=== PATIENT | female | born 1935 | race Caucasian/White ===

== ENCOUNTER 2017-04-16 14:49 | Inpatient (IN) ==
[2017-04-16] MEDS ORDERED: Amiodarone Premix 150 MG/100 ML BAG IVPB ONE (14:55)
[2017-04-16] MEDS ORDERED: 0.9 % Sodium Chloride 1,000 ML IVC ONE (14:55)
[2017-04-16] MEDS ORDERED: Amiodarone Premix 360 MG/200 ML BAG IVC ONE (14:55)
[2017-04-16 15:08] LABS: ABG Base Excess -19.9 mEq/L (-2.0 to 3.0); ABG HCO3 10.6 mEQ/L (21-27); ABG Oxygen Saturation 100 % (95-98); ABG PCO2 43 mmHg (35-45); ABG PO2 519 mmHg (85-104); ABG TCO2 11.9 mEq/L (20-26)
[2017-04-16 15:09] LABS: Basophils # 0.1 K/mcL (0.0-0.2); Basophils % 0.6 %; Eosinophils # 0.2 K/mcL (0.0-0.6); Eosinophils % 1.5 %; Hemoglobin 10.9 g/dL (11.5-15.4); Immature Granulocytes % 4.7 % (0-4); Lymphocytes # 5.8 K/mcL (0.6-4.6); Lymphocytes % 49.8 %; Mean Corpuscular HGB Conc 30.3 g/dL (31.6-35.5); Mean Corpuscular Hemoglobin 29.7 pg (28.0-33.3); Mean Corpuscular Volume 98.1 fL (83.0-100.0); Mean Platelet Volume 10.9 fL (9.4-12.4); Monocytes # 0.7 K/mcL (0.0-1.3); Monocytes % 5.7 %; Neutrophils # 4.4 K/mcL (1.6-8.9); Nucleated Red Blood Cells 0.3 /100 WBC (0); Platelet Count 235 K/mcL (140-400); Red Blood Count 3.67 M/mcL (3.82-4.97); Segmented Neutrophils % 37.7 %
[2017-04-16 15:10] LABS: Blood Gas FiO2 100 %
--- NOTE | 2017-04-16 15:11 | Emergency Department Note ---
Disposition Clinical Impression: Cardiac arrest, Lactic acidosis Atrial fibrillation Qualifiers: Atrial fibrillation type: unspecified Qualified Code(s): I48.91 - Unspecified atrial fibrillation Disposition: Admitted As Inpatient Condition: Critical Time of Disposition: 15:42 CPR HPI - General Chief Complaint: ED Cardiac Arrest/CPR Stated Complaint: cardiac arrest Time Seen by Provider: 04/16/17 14:55 Source: family, EMS Mode of arrival: EMS Limitations: physical limitation Nursing Notes Reviewed: Yes Vital Signs Reviewed: Yes - History of Present Illness HPI Narrative: Patient presents from home after a witnessed arrest. Patient had experienced a choking sensation and then vomited. She became unresponsive. EMS arrived to find the patient apneic and pulseless. She was given rounds of epinephrine and atropine prehospital as well as intubated. She remained apneic and pulseless en route. Witnessed Arrest: Yes Pt Complaint: stopped breathing, collapsed during rest Onset (ago): minute(s) Timing confirmed by: family member Place: home Initial Findings in the Field: no respirations, no pulse ROSC in the Field: No Associated Injuries: No Known history of: CAD Treatments Prior to Arrival: intubation, chest compressions, epinephrine mgs #, atropine mgs # - Related Data Home Medications Medication Instructions Recorded Confirmed Carvedilol [Coreg] 25 mg PO BID 05/06/16 10/28/16 Digoxin [Lanoxin] 0.125 mg PO DAILY 05/06/16 10/28/16 Megestrol Acetate [Megace] 20 ml PO DAILY 05/06/16 10/28/16 Omeprazole [PriLOSEC] 40 mg PO DAILY 05/06/16 10/28/16 Ondansetron HCl [Zofran] 4 mg PO TID PRN 05/06/16 10/28/16 Simvastatin [Zocor] 20 mg PO DAILY 05/06/16 10/28/16 Calcium Carbonate/Vitamin D3 1 tab PO DAILY 10/28/16 10/28/16 [Calcium 500 + Vit D Caplet] Cholecalciferol (D-3) [Vitamin D] 2,000 unit PO DAILY 10/28/16 10/28/16 Sertraline [Zoloft] 100 mg PO BID 10/28/16 10/28/16 clonazePAM [Klonopin] 0.5 mg PO BID PRN 10/28/16 10/28/16 Previous Rx's Medication Instructions Recorded Docusate [Colace] 100 mg PO BID PRN #0 capsule 07/08/16 OxyCODONE/APAP 5/325 [Percocet 0.5 each PO BID PRN #10 tablet 07/08/16 5/325 MG] Azithromycin [Zithromax] 500 mg PO DAILY #3 tablet 11/01/16 Cefdinir [Omnicef] 300 mg PO BID #6 capsule 11/01/16 Allergies Allergy/AdvReac Type Severity Reaction Status Date / Time Hydromorphone [From Dilaudid] Allergy See Verified 10/28/16 12:24 Comments meperidine [From Demerol] Allergy See Verified 10/28/16 12:24 Comments morphine Allergy See Verified 10/28/16 12:24 Comments promethazine Allergy See Verified 10/28/16 12:24 Comments Limitations: ROS unobtainable due to patients medical condition CPR PMH - Past Medical History Medical history: Reports: arthritis, atrial fibrillation, cardiomyopathy, CHF, COPD, coronary artery disease, GERD, GI bleed, hyperlipidemia, hypertension, myocardial infarction, osteoporosis, peripheral artery disease Female Surgical history: Reports: pacemaker/AICD, other (partial gastrectomy) Psychiatric history: Reports: anxiety, depression - Social History Smoking Status: Current every day smoker Alcohol use: Reports: none Drug use: Reports: none Course Course Narrative: Patient presents in cardiac arrest. She was intubated prehospital. Good CO2 color change and breath sounds with bagging. The patient was given 1 round of epinephrine and sodium bicarbonate with return of a narrow complex organized rhythm with a palpable pulse. Approximately 10 minutes later the patient again lost her pulse. She was given another round of epinephrine with return of a narrow complex organized rhythm with a pulse. - Reevaluation(s) Reevaluation #1: Case discussed with Dr. Moralez, cardiology who recommends against an amiodarone drip. accepts ICU admission - Consultations Consultation #1: Case discussed with Dr. Eden, answering service agent 20 minutes after patient's arrival. He states the patient is not a candidate for PCI Consultation #2: I discussed this case with the intensive care unit physician Dr. Thakkar who recommends speaking with the admitting hospitalist Vital Signs Temperature 0 F L 04/16/17 14:51 Pulse Rate 0 04/16/17 14:51 Respiratory Rate 0 04/16/17 14:51 Blood Pressure 0/0 04/16/17 14:51 O2 Sat by Pulse Oximetry 0 04/16/17 14:51 Temperature 0 F L 04/16/17 14:51 Pulse Rate 0 04/16/17 14:51 Respiratory Rate 0 04/16/17 14:51 Blood Pressure 0/0 04/16/17 14:51 O2 Sat by Pulse Oximetry 0 04/16/17 14:51 Oxygen Delivery Oxygen Delivery Ambu Bag Procedures - Central Line Placement Right Femoral Central Line Inserted*: Yes Central Line Insertion: emergent Procedural Pause: verify patient name and date of , pradip and assess the site, assemble equipment and verify supplies, perform hand hygiene Patient Placed on Monitor/Pulse Ox: Yes During the Procedure: clinician is wearing sterile gloves, cap, mask,& gown during insertion, sterile field and sterile technique are maintained, patient's face is covered with drape or mask and wearing a cap Central Line Prep: Chlorhexidine scrub Local Anesthetic: lidocaine 1% Ultrasound Used for Placement: Yes Central Line Lumen Inserted: triple Post Procedure: sutured in place, good blood return, all ports aspirated, flushed, capped, sterile dressing applied, guide wire removed and visualized Patient Tolerated Procedure: no complications Cardiac Arrest/CPR - Medical Records Medical records reviewed: Yes I reviewed the patient's medical records. Medication list - Lab Data Lab results reviewed: Yes I reviewed the patient's lab results. Result diagrams: 04/16/17 15:02 04/16/17 15:02 Lab Results 04/16/17 04/16/17 04/16/17 Range/Units 15:02 15:02 15:02 WBC 11.7 H (4.3-11.1) K/mcL RBC 3.67 L (3.82-4.97) M/mcL Hgb 10.9 L (11.5-15.4) g/dL Hct 36.0 (35.3-44.9) % MCV 98.1 (83.0-100.0) fL MCH 29.7 (28.0-33.3) pg MCHC 30.3 L (31.6-35.5) g/dL RDW 14.0 (11.5-14.5) % Plt Count 235 (140-400) K/mcL MPV 10.9 (9.4-12.4) fL Immature Gran % 4.7 H (0-4) % Seg Neutrophils % 37.7 % Lymphocytes % 49.8 % Monocytes % 5.7 % Eosinophils % 1.5 % Basophils % 0.6 % Neutrophils # 4.4 (1.6-8.9) K/mcL Lymphocytes # 5.8 H (0.6-4.6) K/mcL Monocytes # 0.7 (0.0-1.3) K/mcL Eosinophils # 0.2 (0.0-0.6) K/mcL Basophils # 0.1 (0.0-0.2) K/mcL Nucleated RBCs/100 WBC 0.3 H (0) /100 WBC PT 15.2 H (9.4-12.1) Seconds INR 1.4 APTT 57.5 H (26.0-36.0) Seconds ABG pH (7.32-7.45) pH Units ABG pCO2 (35-45) mmHg ABG pO2 (85-104) mmHg ABG HCO3 (21-27) mEQ/L ABG Total CO2 (20-26) mEq/L ABG O2 Saturation (95-98) % ABG Base Excess (-2.0 to 3.0) mEq/L Blood Gas Modality Inspired O2 % Sodium (136-145) mEq/L Potassium (3.5-4.5) mEq/L Chloride (98-109) mEq/L Carbon Dioxide (19-29) mEq/L BUN (7-20) mg/dL Creatinine (0.57-1.11) mg/dL Est GFR ( Amer) (> 60) Est GFR (Non-Af Amer) (> 60) BUN/Creatinine Ratio (6-26) Glucose (70-99) mg/dL Calculated Osmolality (280-300) Lactic Acid (0.5-2.2) mmol/L Calcium (8.6-10.8) mg/dL Magnesium (1.6-2.6) mg/dL Troponin I (0-0.03) ng/mL Digoxin 1.8 (0.8-2.0) ng/mL 04/16/17 04/16/17 04/16/17 Range/Units 15:02 15:02 15:02 WBC (4.3-11.1) K/mcL RBC (3.82-4.97) M/mcL Hgb (11.5-15.4) g/dL Hct (35.3-44.9) % MCV (83.0-100.0) fL MCH (28.0-33.3) pg MCHC (31.6-35.5) g/dL RDW (11.5-14.5) % Plt Count (140-400) K/mcL MPV (9.4-12.4) fL Immature Gran % (0-4) % Seg Neutrophils % % Lymphocytes % % Monocytes % % Eosinophils % % Basophils % % Neutrophils # (1.6-8.9) K/mcL Lymphocytes # (0.6-4.6) K/mcL Monocytes # (0.0-1.3) K/mcL Eosinophils # (0.0-0.6) K/mcL Basophils # (0.0-0.2) K/mcL Nucleated RBCs/100 WBC (0) /100 WBC PT (9.4-12.1) Seconds INR APTT (26.0-36.0) Seconds ABG pH (7.32-7.45) pH Units ABG pCO2 (35-45) mmHg ABG pO2 (85-104) mmHg ABG HCO3 (21-27) mEQ/L ABG Total CO2 (20-26) mEq/L ABG O2 Saturation (95-98) % ABG Base Excess (-2.0 to 3.0) mEq/L Blood Gas Modality Inspired O2 % Sodium 142 (136-145) mEq/L Potassium 5.3 H (3.5-4.5) mEq/L Chloride 109 (98-109) mEq/L Carbon Dioxide 14 L (19-29) mEq/L BUN 19 (7-20) mg/dL Creatinine 0.82 (0.57-1.11) mg/dL Est GFR ( Amer) > 60 (> 60) Est GFR (Non-Af Amer) > 60 (> 60) BUN/Creatinine Ratio 23 (6-26) Glucose 177 H (70-99) mg/dL Calculated Osmolality 301 H (280-300) Lactic Acid 11.6 H* (0.5-2.2) mmol/L Calcium 9.2 (8.6-10.8) mg/dL Magnesium 1.8 (1.6-2.6) mg/dL Troponin I 0.15 H* (0-0.03) ng/mL Digoxin (0.8-2.0) ng/mL 04/16/17 Range/Units 15:05 WBC (4.3-11.1) K/mcL RBC (3.82-4.97) M/mcL Hgb (11.5-15.4) g/dL Hct (35.3-44.9) % MCV (83.0-100.0) fL MCH (28.0-33.3) pg MCHC (31.6-35.5) g/dL RDW (11.5-14.5) % Plt Count (140-400) K/mcL MPV (9.4-12.4) fL Immature Gran % (0-4) % Seg Neutrophils % % Lymphocytes % % Monocytes % % Eosinophils % % Basophils % % Neutrophils # (1.6-8.9) K/mcL Lymphocytes # (0.6-4.6) K/mcL Monocytes # (0.0-1.3) K/mcL Eosinophils # (0.0-0.6) K/mcL Basophils # (0.0-0.2) K/mcL Nucleated RBCs/100 WBC (0) /100 WBC PT (9.4-12.1) Seconds INR APTT (26.0-36.0) Seconds ABG pH 7.00 L* (7.32-7.45) pH Units ABG pCO2 43 (35-45) mmHg ABG pO2 519 H (85-104) mmHg ABG HCO3 10.6 L (21-27) mEQ/L ABG Total CO2 11.9 L (20-26) mEq/L ABG O2 Saturation 100 H (95-98) % ABG Base Excess -19.9 L (-2.0 to 3.0) mEq/L Blood Gas Modality BAG Inspired O2 100 % Sodium (136-145) mEq/L Potassium (3.5-4.5) mEq/L Chloride (98-109) mEq/L Carbon Dioxide (19-29) mEq/L BUN (7-20) mg/dL Creatinine (0.57-1.11) mg/dL Est GFR ( Amer) (> 60) Est GFR (Non-Af Amer) (> 60) BUN/Creatinine Ratio (6-26) Glucose (70-99) mg/dL Calculated Osmolality (280-300) Lactic Acid (0.5-2.2) mmol/L Calcium (8.6-10.8) mg/dL Magnesium (1.6-2.6) mg/dL Troponin I (0-0.03) ng/mL Digoxin (0.8-2.0) ng/mL - Radiology Data Radiology results reviewed: Yes I reviewed the patient's radiology results. - EKG Data EKG attestation: Yes I reviewed and interpreted this EKG. EKG results narrative: Irregularly irregular rhythm rate 106 QRS 135 QT/QTC 349/411 right bundle branch block ST segment depression in leads V4 through V6 Critical Care Time Critical Care Time: Yes Total Critical Care Time: 30 Attestation: Arrest. ACLS resuscitation. Central line placed by the resident physician under my supervision. Telephone discussion with the answering service agent , claim rep, intensive care unit admit her. IV epinephrine drip initiated. Admitted to the ICU
[2017-04-16 15:17] LABS: INR 1.4; Prothrombin Time 15.2 Seconds (9.4-12.1)
[2017-04-16 15:20] LABS: Activated Partial Thrombo Time 57.5 Seconds (26.0-36.0)
[2017-04-16 15:23] LABS: BUN/Creatinine Ratio 23 (6-26); Blood Urea Nitrogen 19 mg/dL (7-20); Calcium 9.2 mg/dL (8.6-10.8); Carbon Dioxide 14 mEq/L (19-29); Chloride 109 mEq/L (98-109); Glucose 177 mg/dL (70-99); Magnesium 1.8 mg/dL (1.6-2.6); Osmolality,Calculated 301 (280-300); Potassium 5.3 mEq/L (3.5-4.5); Sodium 142 mEq/L (136-145); eGFR For African Americans > 60 (> 60); eGFR For Non-African Americans > 60 (> 60)
[2017-04-16] MEDS: EPINEPHrine 1 MG in D5% in Water 250 ML IVC SCH ×3 (15:36→19:09)
[2017-04-16] MEDS ORDERED: Vasopressin 40 UNIT in D5% in Water 100 ML IVC SCH ×2 (15:53→18:21)
[2017-04-16] MEDS ORDERED: *HR* Amiodarone Premix 150 MG/100 ML BAG IVPB ONE (16:00)
[2017-04-16] MEDS ORDERED: D5% in Water 250 ML IV BAG IV ONE ×2 (16:00→20:54)
[2017-04-16] MEDS ORDERED: *HR* Norepinephrine 4 MG/4 ML VIAL IVC ONE (16:00)
[2017-04-16] MEDS ORDERED: *HR* EPINEPHrine 1 MG/10 ML SYRINGE IVP ONE (16:00)
--- NOTE | 2017-04-16 17:01 | Internal Med History&Physical ---
Addendum entered and electronically signed by Nadya Shore DO 04/16 19:05: 19:05 Family discussion. Family has elected to withdraw care at this time. Attending present for discussion. Original Note: <Nadya Shore - Last Filed: 04/16/17 19:05> Date of Encounter: 04/16/17 Time of Encounter: 16:47 Assessment and Plan (1) Cardiac arrest Status: Acute Patient arrived at hospital with EMS doing CPR. ROSC was obtained on 3 different occasions. She is currently requiring full ventilatory support and is maxed on two pressers. Patient has no corneal or pupillary reflexes at this time. She is maintaining on current support mechanisms however is status is tenuous. Patient coded likely from aspiration and hypoxia. Potentially hypoxic up to 30min prior to EMS arriving and patient was down with EMS approximately 30min before arriving at the hospital. She is not showing any signs of response and has no basic reflexes. Professional opinion that patient is alive because of medical support and patient would not likely survive long if support is withdrawn. Long discussion was had with approximately 10-15 family members concerning patient's status. They voiced their understanding of the situation. Discussed with family that patient's heart stopped on 3 separate occasions. We are currently providing ventilatory support and breathing for the patient. Her heart is currently beating on its own but it is very irregular and has the very real potential of becoming a rhythm not sustainable with life. Explained that we are using max of 2 different medications to keep her blood pressure up and keep blood going to all her organs. I explained that I don't know how long the patient can maintain as she is - could be just hours or could be days. Also discussed that if we stop the ventilator or the medications, she may live for just minutes, for an hour or longer and I have no definitive way of saying. However, I states that I do believe that she will deteriorate eventally if all measures are stopped. Also discussed that if patient was able to survive this, even if we provided max care, it is unlikely that she would return to her status prior to this event. Family is in aggreement. They do not want a third pressor started for her blood pressure. They do not want any medications for her heart rate. Family states that they do not want her on all these machines. They want us to maintain at the currently level of support and not to increase. Discussed possible need for things like bicarb drip and they also said now. They are waiting for a few family members to arrive befre further discussion of maintaining or withdrawing care. If patient passes away while waiting for family, they do no want us to give any more medications or start CPR. Code status changed to DNR-CCA currently. We will do basic non-invasive work up including labs and KUB. If family decides they do want further care we will can more aggressive treatment and diagnosis. Plan: Continue currently level of care at this time including ventilatory support and pressors, do not escilate. Patient's prognosis is grim. Neuro: Patient not requiring any sedation at this time. Fentanyl pushes for pain control. She has no corneal reflexes or pupillary reflexes. Pulm: Continue current ventilatory support - wean if appropriate Cardiac: S/p cardiac arrest. Sinus/sinus bradycardia with frequent ectopy. Continue cardiac monitoring. Continue current vasopressor support, wean if tolerated. Will not escalate to a third vasopressor or start medication for heart rate FEN-GI: NPO. OG tube in place. Significant diarrhea, rectal tube placed. On maintenance fluids. Will check electrolytes Renal: Cooper in place ID: No acute concerns and no indication for antibiotics at this time. Will monitor Heme/Onc: heparin for DVT ppx Code Status: DNR-CC do not escalate care. Lines: ET, OG, fem CVC, cooper, rectal Dispo: ICU, prognosis grim (2) Lactic acidosis Status: Acute (3) Chronic systolic CHF (congestive heart failure) Status: Chronic (4) COPD (chronic obstructive pulmonary disease) Status: Chronic Qualifiers: COPD type: unspecified COPD Qualified Code(s): J44.9 - Chronic obstructive pulmonary disease, unspecified (5) Nonischemic cardiomyopathy Status: Chronic (6) Goals of care, counseling/discussion Status: Acute Internal Medicine - H&P: HPI Chief complaint: s/p cardiac arrest Admitted From: Emergency Dept History of present illness: Ms. Whitman is a 82 year old female with history of AFib, cardiomyopathy with AICD /pacemaker, CHF, and COPD who was admitted to the ICU from the ED s/p cardiac arrest. Patient was at home this afternoon eating soup when she choked causing her to vomit. Per family, she said she wasn't feeling well and went to lay down. About 30min later, family went to check on her and she was unresponsive. CPR was started and EMS was called. Per report, EMS was coding patient in the field 30 min before patient arrived in the hospital. ET tube was placed successfully in the field. On arrival, patient was given a round of epi before ROSC was obtained. Approximately 10 min later patient went into PEA, was given another round of epinephrine and bicarb before ROSC was obtained. Approximately 10 mins later, patient again went into PEA, was given 2 of bicarp and started on an epi drip. At this time, family signed a DNR-CCA order and patient was transferred to the ICU. On arrival to the ICU, patient's heart rate was in the 60s with lots of ectopy. Blood pressure was 70s/50s despite being maxed on epinephrine and vasopressin. Patient desaturated into the 60s and took significant bagging to raise oxygen saturation. Family elected not to purse more aggressive care so a 3rd pressor was not started and no medication will be started for the significant ectopy. Currently patient is maintaining. HR in the 60s. O2 saturation 98% on 100% FiO2. Blood pressure 95/60 on 2 vasopressors. Patient has no corneal or pupillary reflex. Chest with crepatus s/p CPR. Right sided crackles, left sided rhonchi. Abdomen soft non-tender. Capillary refill slow. Past Med Surg Social Fam HX - Past Medical History Medical history: arthritis, atrial fibrillation, cardiomyopathy, CHF, COPD, coronary artery disease, GERD, GI bleed, hyperlipidemia, hypertension, myocardial infarction, osteoporosis, peripheral artery disease Psychiatric history: anxiety, depression - Past Surgical History Surgical History: pacemaker/AICD, other (partial gastrectomy) - Social History Smoking Status: Current every day smoker Smokeless Tobacco Status: No Alcohol use: none Drug use: none - Family History Father Adopted: No Living Status: Hx Family Cardiac Disorders: Yes Mother Hx Family Cardiac Disorders: Yes Hx Family Respiratory Disorders: Yes Internal Medicine - H&P: Meds Carvedilol [Coreg] 25 mg PO BID 05/06/16 [History] Digoxin [Lanoxin] 0.125 mg PO DAILY 05/06/16 [History] Megestrol Acetate [Megace] 20 ml PO DAILY 05/06/16 [History] Omeprazole [PriLOSEC] 40 mg PO DAILY 05/06/16 [History] Ondansetron HCl [Zofran] 4 mg PO TID PRN 05/06/16 [History] Simvastatin [Zocor] 20 mg PO DAILY 05/06/16 [History] Docusate [Colace] 100 mg PO BID PRN #0 capsule 07/08/16 [Rx] Calcium Carbonate/Vitamin D3 [Calcium 500 + Vit D Caplet] 1 tab PO DAILY [History] Cholecalciferol (D-3) [Vitamin D] 2,000 unit PO DAILY 10/28/16 [History] Sertraline [Zoloft] 100 mg PO BID 10/28/16 [History] clonazePAM [Klonopin] 0.5 mg PO TID PRN 10/28/16 [History] Aspirin [Lo-Dose Aspirin EC] 81 mg PO DAILY 04/16/17 [History] Oxycodone HCl/Acetaminophen [Percocet 10-325 mg Tablet] 1 tab PO BID PRN [History] Allergies Hydromorphone [From Dilaudid] Allergy (Unknown, Verified 04/16/17 15:59) See Comments Unsure of reaction- meperidine [From Demerol] Allergy (Unknown, Verified 04/16/17 15:59) See Comments Unsure of reaction- morphine Allergy (Unknown, Verified 04/16/17 15:59) See Comments Unsure of reaction- promethazine Allergy (Unknown, Verified 04/16/17 15:59) See Comments Unsure of reaction- ROS unobtainable: due to endotracheal tube, due to mental status All Systems PM: A 10-system review of systems was performed and is negative for pertinent findings except as documented above in the HPI. - Constitutional Vitals: Temp Pulse Resp BP Pulse Ox 0 F L 85 14 66/49 94 04/16/17 14:51 04/16/17 15:45 04/16/17 16:05 04/16/17 16:05 04/16/17 15:45 Exam: Intubated and sedated - Head Head exam: Present: atraumatic, normocephalic - Eye Pupils: Present: fixed Additional comments: No pupillary or corneal reflex. - Neck Neck exam general surgery: Present: trachea midline - Respiratory Respiratory exam: Present: decreased breath sounds, rales, rhonchi - Cardiovascular Cardiovascular exam: Present: irregular rhythm - GI/Abdominal GI/Abdominal exam: Present: soft. Absent: distended - Extremities Exam Extremities exam: Absent: pedal edema - Neurological Exam Additional comments: Patient has no pupillary reflex or corneal reflex. Internal Med - H&P Results - Labs CBC & Chem 7: 04/16/17 15:02 04/16/17 15:02 - ABG Interpretation Interpretation: abnormal <Lazarus Mcallister - Last Filed: 04/17/17 07:34> Date of Encounter: 04/17/17 Internal Medicine - H&P: HPI History of present illness: Ms. Whitman is a 82 year old female All Systems PM: A 10-system review of systems was performed and is negative for pertinent findings except as documented above in the HPI. - Constitutional Vitals: Temp Pulse Resp BP Pulse Ox 94 F L 65 16 67/36 100 04/16/17 17:00 04/16/17 18:00 04/16/17 18:00 04/16/17 18:00 04/16/17 18:00 Internal Med - H&P Results - Labs CBC & Chem 7: 04/16/17 18:51 04/16/17 18:51 Labs: Short CBC 04/16/17 Range/Units 18:51 WBC 16.5 H (4.3-11.1) K/mcL Hgb 11.3 L (11.5-15.4) g/dL Hct 35.4 (35.3-44.9) % Plt Count 280 (140-400) K/mcL Neutrophils # 14.3 H (1.6-8.9) K/mcL BMP 04/16/17 18:51 Sodium 143 Potassium 5.2 H Chloride 109 Carbon Dioxide 22 BUN 24 H Creatinine 1.00 Glucose 280 H Calcium 7.9 L Liver Function 04/16/17 Range/Units 18:51 Total Bilirubin 0.5 (0.2-1.2) mg/dL AST 635 H (5-34) Units/L ALT 399 H (0-55) Units/L Alkaline Phosphatase 220 H (38-126) Units/L Albumin 2.1 L (3.5-5.0) g/dL - ABG Interpretation ABG results: 04/16/17 18:51 VBG pH 7.19 L* VBG pCO2 64 H VBG pO2 56 H VBG HCO3 24.4 - Impressions ITS Impressions KUB X-Ray 04/16/17 17:32 IMPRESSION: Enteric tube with side hole several cm above the gastroesophageal junction. Advancement of the tube by at least 10 cm is recommended. D/ / Humaira Stewart Cha, MD / Humaira Stewart Cha, MD Interpreting Provider: Humaira Stewart Cha, MD - Attending Attestation I examined this patient and my medical decision-making was reviewed with the Resident Physician. I agree with the documented findings, disposition and treatment plan as described
[2017-04-16] MEDS ORDERED: *HR* FentaNYL (PF) 100 MCG/2 ML VIAL IVP PRN (18:01)
[2017-04-16 18:11] VITALS: BP 67/36
[2017-04-16] MEDS ORDERED: Naloxone 0.4 MG/ML INJ IVP PRN (18:22)
[2017-04-16] MEDS ORDERED: Acetaminophen 650 MG RECTAL SUPP RC PRN (18:22)
[2017-04-16] MEDS ORDERED: *HR* FentaNYL (PF) 100 MCG/2 ML VIAL IVP ONE (19:02)
[2017-04-16] MEDS ORDERED: *HR* LORazepam 2 MG/ML VIAL IVP PRN (19:02)
[2017-04-16 19:04] LABS: VBG HCO3 24.4 mEq/L (21-27)
[2017-04-16 19:05] LABS: Basophils % 0.2 %; Eosinophils % 0.1 %; Hematocrit 35.4 % (35.3-44.9); Hemoglobin 11.3 g/dL (11.5-15.4); Immature Granulocytes % 0.8 % (0-4); Immature Platelets 3.7 % (1.1-6.1); Lymphocytes # 1.2 K/mcL (0.6-4.6); Lymphocytes % 7.3 %; Mean Corpuscular HGB Conc 31.9 g/dL (31.6-35.5); Mean Corpuscular Hemoglobin 29.7 pg (28.0-33.3); Mean Corpuscular Volume 93.2 fL (83.0-100.0); Mean Platelet Volume 10.4 fL (9.4-12.4); Monocytes # 0.8 K/mcL (0.0-1.3); Monocytes % 4.9 %; Neutrophils # 14.3 K/mcL (1.6-8.9); Platelet Count 280 K/mcL (140-400); Red Cell Distribution Width 14.1 % (11.5-14.5); Segmented Neutrophils % 86.7 %
[2017-04-16 19:09] LABS: VBG PH 7.19 pH Units (7.32-7.42)
[2017-04-16 19:12] LABS: Ionized Calcium 1.06 mmol/L (1.15-1.35)
[2017-04-16 19:20] LABS: Alanine Aminotransferase 399 Units/L (0-55); Albumin 2.1 g/dL (3.5-5.0); Albumin/Globulin Ratio 0.6 (1.1-2.2); Alkaline Phosphatase 220 Units/L (38-126); Aspartate Amino Transferase 635 Units/L (5-34); BUN/Creatinine Ratio 24 (6-26); Bilirubin,Total 0.5 mg/dL (0.2-1.2); Blood Urea Nitrogen 24 mg/dL (7-20); Calcium 7.9 mg/dL (8.6-10.8); Carbon Dioxide 22 mEq/L (19-29); Chloride 109 mEq/L (98-109); Globulin 3.4 g/dL (2.4-3.5); Glucose 280 mg/dL (70-99); Magnesium 1.3 mg/dL (1.6-2.6); Osmolality,Calculated 310 (280-300); Phosphorous 7.8 mg/dL (2.3-4.7); Potassium 5.2 mEq/L (3.5-4.5); Sodium 143 mEq/L (136-145); Total Protein 5.5 g/dL (6.0-8.3); eGFR For African Americans > 60 (> 60); eGFR For Non-African Americans 53 (> 60)
[2017-04-16] MEDS ORDERED: *HR* Heparin 5,000 UNIT/ML VIAL SQ SCH (22:00)
--- NOTE | 2017-04-16 22:55 | Event Note ---
Date of Encounter: 04/16/17 Time of Encounter: 20:30 On-call Hospitalist note: Pt was s/p cardiac arrest and was on pressor support and on the vent. Pt was earlier extubated, after Dr Mcallister discussed with the family members. RN from ICU notified me that the pt and time of as reported is 19:40. Pt is unresponsive, no heart sounds or breath sounds heard. confirmed ( time of my evaluation: 20:30) May her soul rest in peace. summary / certificate possibly be done by Dr Mcallister / Dr Thakkar
[2017-04-17] MEDS ORDERED: Pantoprazole 40 MG VIAL IVPB SCH (09:00)
--- NOTE | 2017-04-18 17:12 | Electrocardiograph Report ---
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
== END 2017-04-16 20:55 | disposition expired | DRG 208 ==
LOC: EMEROO 14:49 → ICNU 15:34
PROVIDERS: ADMIT Internal Medicine Endocrinology, Diabetes & Metabolism; ATTEND Internal Medicine Pulmonary Disease